=== PATIENT | male | born 1970 | race African-American/Black ===

== ENCOUNTER 2020-06-11 15:02 | Emergency (ER) | payer MEDICARE, MEDICAID ==
[2020-06-11 16:39] LABS: ACETAMINOPHEN 0 ug/mL (10-30)
--- NOTE | 2020-06-11 17:08 | EDM.PDOCBH ---
ED HPI GENERAL MEDICAL PROBLEM - General Chief Complaint: Behavioral/Psych Stated Complaint: [facility] Time Seen by Provider: 06/11/20 15:11 Source of Information: Reports: Patient, Skilled Nursing Records History Limitations: Reports: No Limitations - History of Present Illness INITIAL COMMENTS - FREE TEXT/NARRATIVE: The patient presents by EMS for medical clearance for admission to the [facility] in [place]. The patient is a resident of [facility]. He is in geriatric psych there. 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 He has a guardian. His guardian has restricted him from seeing his girlfriend and some other restrictions. He has been upset about that and having aggressive behavior, threatening staff and breaking stuff. He had an outburst today. They gave him some ativan and he came up here. He is denying the alligations. [facility] service [place] has gotten him accepted to the [facility] in [place]. He denies fever, chills, cough, congestion, runny nose, chest pain, shortness of breath, abdominal pain, nausea or vomiting. [facility] tells me they have been dealing with him since Sunday so for 5 days. The need him to be admitted and possibly get med changes. Onset: Gradual Duration: Day(s): Severity: Moderate Improves with: Reports: None Worsens with: Reports: None Associated Symptoms: Reports: No Other Symptoms - Related Data Allergies Allergy/AdvReac Type Severity Reaction Status Date / Time No Known Allergies Allergy Verified 06/11/20 15:26 ED ROS GENERAL - Review of Systems Review Of Systems: See Below Constitutional: Reports: No Symptoms HEENT: Reports: No Symptoms Respiratory: Reports: No Symptoms Cardiovascular: Reports: No Symptoms Endocrine: Reports: No Symptoms GI/Abdominal: Reports: No Symptoms : Reports: No Symptoms Musculoskeletal: Reports: No Symptoms Skin: Reports: No Symptoms Neurological: Reports: No Symptoms Psychiatric: Reports: No Symptoms ED EXAM, BEHAVIORAL HEALTH - Physical Exam Exam: See Below Exam Limited By: No Limitations General Appearance: Alert, No Apparent Distress Ears: Normal External Exam Nose: Normal Inspection Head: Atraumatic, Normocephalic Neck: Normal Inspection Respiratory/Chest: No Respiratory Distress, Lungs Clear, Normal Breath Sounds Cardiovascular: Regular Rate, Rhythm, No Edema, No Murmur GI/Abdominal: Soft, Non-Tender, No Organomegaly, No Mass Back Exam: Normal Inspection Extremities: Normal Inspection COURSE, BEHAVIORAL HEALTH COMP - Course Vital Signs: Last Vital Signs Temp 97.4 F 06/11/20 15:15 Pulse 88 06/11/20 15:15 Resp 16 06/11/20 15:15 BP 137/94 H 06/11/20 15:15 Pulse Ox 97 06/11/20 15:15 Orders, Labs, Meds: Active Orders 24 hr Category Date Time Status Cardiac Monitoring [RC] . DIRECTED Care 06/11/20 15:36 Active Laboratory Tests 06/11/20 06/11/20 06/11/20 Range/Units 15:46 15:46 15:46 WBC 5.04 (4.23-9.07) K/mm3 RBC 4.92 (4.63-6.08) M/mm3 Hgb 14.5 (13.7-17.5) gm/dl Hct 46.2 (40.1-51.0) % MCV 93.9 H (79.0-92.2) fl MCH 29.5 (25.7-32.2) pg MCHC 31.4 L (32.2-35.5) g/dl RDW Std Deviation 45.6 H (35.1-43.9) fL Plt Count 257 (163-337) K/mm3 MPV 9.5 (9.4-12.3) fl Neut % (Auto) 49.4 (34.0-67.9) % Lymph % (Auto) 33.9 (21.8-53.1) % [place] % (Auto) 12.7 H (5.3-12.2) % Eos % (Auto) 3.0 (0.8-7.0) Baso % (Auto) 0.6 (0.1-1.2) % Neut # (Auto) 2.49 (1.78-5.38) K/mm3 Lymph # (Auto) 1.71 (1.32-3.57) K/mm3 [place] # (Auto) 0.64 (0.30-0.82) K/mm3 Eos # (Auto) 0.15 (0.04-0.54) K/mm3 Baso # (Auto) 0.03 (0.01-0.08) K/mm3 Sodium 140 (136-145) mEq/L Potassium 4.3 (3.5-5.1) mEq/L Chloride 105 (98-107) mEq/L Carbon Dioxide 23 (21-32) mEq/L Anion [place] 16.3 H (5-15) BUN 11 (7-18) mg/dL Creatinine 1.4 H (0.7-1.3) mg/dL Est Cr Clr Drug Dosing TNP Estimated GFR (MDRD) 53 (>60) mL/min BUN/Creatinine Ratio 7.9 L (14-18) Glucose 103 (74-106) mg/dL Calcium 8.8 (8.5-10.1) mg/dL Total Bilirubin 0.6 (0.2-1.0) mg/dL AST 24 (15-37) U/L ALT 45 (16-63) U/L Alkaline Phosphatase 96 (46-116) U/L Total Protein 7.5 (6.4-8.2) g/dl Albumin 3.7 (3.4-5.0) g/dl Globulin 3.8 gm/dL Albumin/Globulin Ratio 1.0 (1-2) TSH 3rd Generation 2.193 (0.358-3.74) uIU/mL Salicylates < 0.2 L (2.8-20) mg/dL Urine Opiates Screen (BBVCRZ=482) Ur Buprenorphine Scrn (CUTOFF=10) Ur Oxycodone Screen (SLL9BJ=094) Urine Methadone Screen (CUX3EP=310) Ur Propoxyphene Screen (UXMICQ=361) Acetaminophen 0 L (10-30) ug/mL Ur Barbiturates Screen (PYCGKR=248) Ur Tricyclics Screen (TCVSLP=569) Ur Phencyclidine Scrn (CUTOFF=25) Ur Amphetamine Screen (WCLEZV=450) U Methamphetamines Scrn (WSUQPY=495) U Benzodiazepines Scrn (YITRHG=915) U Cocaine Metab Screen (RIJROY=583) U Marijuana (THC) Screen (CUTOFF=50) Ethyl Alcohol 0.00 (0.00) gm% SARS-CoV-2 RNA (CECI) (NEGATIVE) 06/11/20 06/11/20 Range/Units 17:07 17:09 WBC (4.23-9.07) K/mm3 RBC (4.63-6.08) M/mm3 Hgb (13.7-17.5) gm/dl Hct (40.1-51.0) % MCV (79.0-92.2) fl MCH (25.7-32.2) pg MCHC (32.2-35.5) g/dl RDW Std Deviation (35.1-43.9) fL Plt Count (163-337) K/mm3 MPV (9.4-12.3) fl Neut % (Auto) (34.0-67.9) % Lymph % (Auto) (21.8-53.1) % [place] % (Auto) (5.3-12.2) % Eos % (Auto) (0.8-7.0) Baso % (Auto) (0.1-1.2) % Neut # (Auto) (1.78-5.38) K/mm3 Lymph # (Auto) (1.32-3.57) K/mm3 [place] # (Auto) (0.30-0.82) K/mm3 Eos # (Auto) (0.04-0.54) K/mm3 Baso # (Auto) (0.01-0.08) K/mm3 Sodium (136-145) mEq/L Potassium (3.5-5.1) mEq/L Chloride (98-107) mEq/L Carbon Dioxide (21-32) mEq/L Anion [place] (5-15) BUN (7-18) mg/dL Creatinine (0.7-1.3) mg/dL Est Cr Clr Drug Dosing Estimated GFR (MDRD) (>60) mL/min BUN/Creatinine Ratio (14-18) Glucose (74-106) mg/dL Calcium (8.5-10.1) mg/dL Total Bilirubin (0.2-1.0) mg/dL AST (15-37) U/L ALT (16-63) U/L Alkaline Phosphatase (46-116) U/L Total Protein (6.4-8.2) g/dl Albumin (3.4-5.0) g/dl Globulin gm/dL Albumin/Globulin Ratio (1-2) TSH 3rd Generation (0.358-3.74) uIU/mL Salicylates (2.8-20) mg/dL Urine Opiates Screen Negative (OLGOIP=390) Ur Buprenorphine Scrn Negative (CUTOFF=10) Ur Oxycodone Screen Negative (NEJ5QD=870) Urine Methadone Screen Negative (VKJ8MO=967) Ur Propoxyphene Screen Negative (ZXVOHC=247) Acetaminophen (10-30) ug/mL Ur Barbiturates Screen Negative (NKBQYR=597) Ur Tricyclics Screen Presumptive positive H (TAUSFW=373) Ur Phencyclidine Scrn Negative (CUTOFF=25) Ur Amphetamine Screen Negative (WLNAEC=664) U Methamphetamines Scrn Negative (RIZWHE=309) U Benzodiazepines Scrn Negative (BIMGDF=661) U Cocaine Metab Screen Negative (QYINOM=418) U Marijuana (THC) Screen Negative (CUTOFF=50) Ethyl Alcohol (0.00) gm% SARS-CoV-2 RNA (CECI) Negative (NEGATIVE) Re-Assessment/Re-Exam: I ordered labs and a COVID 19 screen. His CBC looks good. His creatinine is elevated at 1.4. His TSH is normal. His drug screen is positive for tricyclics. His acetaminophen and salicylates are normal. His ETOH is 0. He is COVID negative. I called the [facility] at [place] and talked with Dr Bose and he accepted the patient. We will be sending him by [facility]. Departure - Departure Time of Disposition: 19:00 Disposition: Home, Self-Care 01 Condition: Good Clinical Impression: Aggressive behavior - Discharge Information Referrals: Art Ball MD [Primary Care Provider] - Forms: ED Department Discharge Sepsis Event Note (ED) - Evaluation Sepsis Screening Result: No Definite Risk - Focused Exam Vital Signs: Vital Signs Temp Pulse Resp BP Pulse Ox 06/11/20 15:15 97.4 F 88 16 137/94 H 97 - My Orders Last 24 Hours: My Active Orders 06/11/20 15:36 Cardiac Monitoring [RC] . DIRECTED - Assessment/Plan Last 24 Hours: My Active Orders 06/11/20 15:36 Cardiac Monitoring [RC] . DIRECTED
[2020-06-11] MEDS ORDERED: LORazepam 1 MG Tab PO ONE (19:56)
== END 2020-06-11 21:11 | disposition home or self-care (01) ==
LOC: JD.ED 15:02
DX: F91.1 Conduct disorder, childhood-onset type (principal); F03.90 Unspecified dementia, unspecified severity, without behavioral disturbance, psychotic disturbance, mood disturbance, and anxiety; Z20.822 Contact with and (suspected) exposure to COVID-19
CPT/HCPCS: 36415; 80053; 80143; 80179; 80306; 80307; 84443; 85025; 99285; A9270; U0002; 99283